=== PATIENT | female | born 1950 | race Caucasian/White ===

== ENCOUNTER → 2020-05-22 | Outpatient (CLI) | payer MEDICARE, BC | LOC: MAMO 11-23 09:30 | DX: Z12.31 Encounter for screening mammogram for malignant neoplasm of breast (principal); Z53.9 Procedure and treatment not carried out, unspecified reason ==

== ENCOUNTER → 2020-06-27 | Outpatient (CLI) | payer MEDICARE, BC | LOC: MAMO 10:50 | DX: Z12.31 Encounter for screening mammogram for malignant neoplasm of breast (principal) | CPT/HCPCS: 77063; 77067 ==

== ENCOUNTER → 2021-01-15 | Outpatient (CLI) | payer MEDICARE, BC | LOC: EXRD 09:39 | DX: M81.0 Age-related osteoporosis without current pathological fracture (principal); M85.88 Other specified disorders of bone density and structure, other site | CPT/HCPCS: 77080 ==

== ENCOUNTER 2021-06-22 13:43 | Observation (INO) | payer MEDICARE, BC ==
[~2021-06-22] VITALS: Ht 170.2 cm; Wt 82.6 kg
[2021-06-22 14:33] LABS: HEMOGLOBIN 16.3 gm/dl (12.3-15.3); RED BLOOD COUNT 5.08 M/UL (4.00-5.10); WHITE BLOOD COUNT 11.7 K/UL (4.5-11.0)
[2021-06-22] MEDS ORDERED: HYDROCODON-ACE1 EAC6 PO (17:40)
[2021-06-22] MEDS ORDERED: LOSARTAN POTAS100 MG PO (17:41)
[2021-06-22] MEDS ORDERED: POTASSIUM CHLO20 ME2 PO (17:42)
[2021-06-22] MEDS ORDERED: PRAVASTATIN SOD80 MG PO (17:42)
[2021-06-22] MEDS ORDERED: NABUMETONE750 MG PO (17:43)
[2021-06-22] MEDS ORDERED: CARVEDILOL3.125 MG PO (17:44)
[2021-06-22] MEDS ORDERED: AMLODIPINE BESY10 MG PO (17:44)
[2021-06-22] MEDS ORDERED: ALLOPURINOL100 MG PO (17:45)
[2021-06-22] MEDS ORDERED: CETIRIZINE HCL10 MG PO (17:45)
[2021-06-22] MEDS ORDERED: HYDROCHLOROTHIA25 MG PO (17:45)
[2021-06-22] MEDS ORDERED: PROTONIX 40 MG40 M1 PO (17:46)
[2021-06-22] MEDS ORDERED: FUROSEMIDE20 MG PO (17:46)
[2021-06-22] MEDS ORDERED: CYCLOBENZAPRINE10 MG PO (17:47)
[2021-06-22] MEDS ORDERED: FISH OIL 1,2001 EAC7 PO (17:48)
[2021-06-22] MEDS ORDERED: ZINC SULFATE50 M1 PO (17:49)
[2021-06-22] MEDS ORDERED: CALCIUM 600 +1 EAC3 PO (17:50)
[2021-06-22] MEDS ORDERED: ASPIRIN EC81 MG PO (17:51)
[2021-06-23] MEDS ORDERED: LOPRESSOR 25 MG25 MG PO (11:21)
[2021-06-23] MEDS ORDERED: ELIQUIS5 MG PO (11:24)
== END 2021-06-23 14:45 | disposition home or self-care (01) ==
LOC: ER1 13:43 → PROG CARE 15:52 → CDU 15:52 → PROG CARE 06-23 00:15
PROVIDERS: Emergency Medicine; ADMIT Internal Medicine Infectious Disease
DX: I48.0 Paroxysmal atrial fibrillation (principal); I10 Essential (primary) hypertension; R63.4 Abnormal weight loss; E78.5 Hyperlipidemia, unspecified; G89.4 Chronic pain syndrome; M10.9 Gout, unspecified; Z90.49 Acquired absence of other specified parts of digestive tract; Z90.711 Acquired absence of uterus with remaining cervical stump; Z88.1 Allergy status to other antibiotic agents; Z98.890 Other specified postprocedural states; Z88.6 Allergy status to analgesic agent; Z79.82 Long term (current) use of aspirin; Z20.822 Contact with and (suspected) exposure to COVID-19
CPT/HCPCS: 71045; 80053; 80061; 82550; 82553; 83735; 83880; 84100; 84439; 84443; 84484; 85025; 85379; 85610; 85730; 93005; 96374; 99285; G0378; U0002

== ENCOUNTER → 2021-08-27 | Outpatient (CLI) | payer MEDICARE, BC ==
[~2021-08-27] MED LIST: ALLOPURINOL100 MG PO; AMLODIPINE BESY10 MG PO; ASPIRIN EC81 MG PO; CALCIUM 600 +1 EAC3 PO; CARVEDILOL3.125 MG PO; CETIRIZINE HCL10 MG PO; CYCLOBENZAPRINE10 MG PO; ELIQUIS5 MG PO; FISH OIL 1,2001 EAC7 PO; FUROSEMIDE20 MG PO; HYDROCHLOROTHIA25 MG PO; HYDROCODON-ACE1 EAC6 PO; LOPRESSOR 25 MG25 MG PO; LOSARTAN POTAS100 MG PO; NABUMETONE750 MG PO; POTASSIUM CHLO20 ME2 PO; PRAVASTATIN SOD80 MG PO; PROTONIX 40 MG40 M1 PO; ZINC SULFATE50 M1 PO
== END ==
LOC: NM 09:31
DX: R07.9 Chest pain, unspecified (principal); I48.91 Unspecified atrial fibrillation
CPT/HCPCS: 78452; 93017; A9502; J2785